=== PATIENT | female | born 1975 | race Caucasian/White ===

== ENCOUNTER 2021-07-13 07:25 | Emergency (ER) | payer BC, SELFPAY ==
[2021-07-13] MEDS ORDERED: Fentanyl 100 MCG/2 ML VIAL ONE ×4 (08:03→11:41)
[2021-07-13 08:40] LABS: INR-International Normal Ratio 1.1; Prothrombin Time 14.8 sec (12.0-14.7)
[2021-07-13] MEDS ORDERED: Levofloxacin 500 mg/D5W 100 ml Premix Bag ONE (10:15)
[2021-07-13] MEDS ORDERED: Midazolam HCl 2 mg/2 ml Vial ONE (10:26)
[2021-07-13] MEDS ORDERED: Iothalamate Meglumine 60% 50 ML VIAL FS ONE ×2 (10:29→12:23)
[2021-07-13] MEDS ORDERED: Ondansetron PF 4 MG/2 ML Vial ONE (10:44)
[2021-07-13] MEDS ORDERED: PROPOFOL 200 MG/20 ML VIAL ONE (10:44)
[2021-07-13] MEDS ORDERED: Lidocaine 1% PF 5 ML VIAL ONE (10:44)
[2021-07-13] MEDS ORDERED: PHENYLEPHRINE-NS 100 MCG/ML 10 ML SYRINGE ONE (10:44)
[2021-07-13] MEDS ORDERED: Dexamethasone 20 MG/5 ML VIAL ONE (10:44)
[2021-07-13] MEDS ORDERED: Phenazopyridine HCl 100 MG TAB ONE (11:25)
[2021-07-13] MEDS ORDERED: Ketorolac Tromethamine 30 MG/ML VIAL ONE (11:25)
[2021-07-13] MEDS ORDERED: Oxybutynin 5 MG TAB ONE (11:25)
== END 2021-07-13 10:02 | disposition admitted as inpatient to this hospital (09) ==
LOC: ERS 07:25
PROC: 0T778DZ Dilation of Left Ureter with Intraluminal Device, Via Natural or Artificial Opening Endoscopic (ICD-10-PCS; principal; 2021-07-13)
DX: N13.2 Hydronephrosis with renal and ureteral calculous obstruction (principal); M51.9 Unspecified thoracic, thoracolumbar and lumbosacral intervertebral disc disorder; Z86.16 Personal history of COVID-19; Z79.899 Other long term (current) drug therapy; Z91.040 Latex allergy status
CPT/HCPCS: 36415; 71045; 74420; 85610; 85730; 93005; 96374; 96376; C2617; J1100; J1885; J1956; J2250; J2405; J2704; J3010; Q9961-U8

== ENCOUNTER 2021-07-18 13:48 | Outpatient (CLI) | payer BC ==
[2021-07-18 15:05] LABS: Hemoglobin 10.9 g/dL (12.0-15.5); Mean Corpuscular HGB CONC 32.2 g/dL (32.0-36.0); Mean Corpuscular Hemoglobin 25.3 pg (27.0-33.0); Mean Corpuscular Volume 78.8 fl (81.6-98.3); Mean Platelet Volume 11.1 fl (7.4-10.4); Platelet Count 304 10x3/uL (150-450); RBC Distribution Width 13.4 % (11.5-14.5); White Blood Cell (WBC) Count 6.6 10x3/uL (3.5-10.5)
[2021-07-18 15:13] LABS: PTT 24.5 sec (22.0-33.0); Prothrombin Time 10.6 sec (9.5-12.1)
[2021-07-18 15:18] LABS: Anion Gap 16 mmol/L (10-20); BUN (Urea Nitrogen) 7 mg/dL (7.0-18.7); Calc. Creatinine Clearance 0 mL/min (70-130); Carbon Dioxide 26 mmol/L (22-29); Chloride 100 mmol/L (98-107); Glucose 108 mg/dL (70-105); Potassium 3.2 mmol/L (3.5-5.1); Sodium 139 mmol/L (136-145)
[2021-07-18 23:19] LABS: SARS-CoV-2 PCR by NAA Not Detected (NotDetected)
== END 2021-07-18 13:49 | disposition home or self-care (01) ==
LOC: LABBT 13:48
PROVIDERS: ATTEND Urology
DX: Z01.818 Encounter for other preprocedural examination (principal); N20.1 Calculus of ureter; Z20.822 Contact with and (suspected) exposure to COVID-19
CPT/HCPCS: 80048; 85027; 85610; 85730; 93005; 93010; U0003; U0005

== ENCOUNTER 2025-05-16 08:35 | Day surgery (SDC) | payer OTHER ==
[2025-05-16 11:17] VITALS: BP 109/59; TEMP 98.3
== END 2025-05-16 11:00 | disposition home or self-care (01) ==
LOC: ONC/OP 08:35
PROVIDERS: ATTEND Internal Medicine
DX: R79.89 Other specified abnormal findings of blood chemistry (principal)
CPT/HCPCS: 36415; 80400; 82024; 96374; 99211; G0463; J0834